=== PATIENT | male | born 1970 | race Caucasian/White ===

== ENCOUNTER 2020-11-13 14:18 | Emergency (ER) | payer BC ==
[~2020-11-13] VITALS: Ht 177.8 cm; Wt 92.5 kg
[2020-11-13 14:38] VITALS: BP_SYST 137
--- NOTE | 2020-11-13 14:38 | NUR ---
PT TO REMAIN IN THE ER LOBBY UNTIL ER BED BECOMES AVAILABLE.
--- NOTE | 2020-11-13 15:10 | NUR ---
Placed in room 6 . Placed on hr generalist, blood pressure machine and pulse oximeter. To gown for exam. Side rails up.
--- NOTE | 2020-11-13 15:11 | NUR ---
Pt came into ER with complaint of intermittent epigastric pain Xtoday at 0800 this morning. Pt reportsit was a dull non radiating intermittent pain 5/10. Pt reports feeling no pain currently and no shortness of breath. Pt is AAOX4 speaking full sentences breathing even and unlabored lungs CTA bilaterally. VSS no distress at this time attached to monitor resting in [place].
--- NOTE | 2020-11-13 15:30 | NUR ---
# 20 gauge angiocath placed to LAC. Use of asceptic technique. Opsite placed over site. Blood return noted. Blood for lab drawn from site. Flushed with 10 cc of normal saline. No evidence of infiltration noted. Patient tolerated well.
--- NOTE | 2020-11-13 15:34 | NUR ---
Blood collected and sent to lab.
--- NOTE | 2020-11-13 16:43 | NUR ---
ER at bedside examining patient.
[2020-11-13] MEDS ORDERED: MAG-AL HYDROX/SIMETH 30 ML UDC PO ONE (17:00)
[2020-11-13] MEDS ORDERED: PANTOPRAZOLE SODIUM 40 MG/VIAL (PROTONIX) IVP ONE (17:00)
--- NOTE | 2020-11-13 17:11 | NUR ---
X-ray at bedside.
[2020-11-13 17:19] LABS: BASOPHILS % (AUTO) 0.2 % (0.0-2.0); EOSINOPHILS % (AUTO) 0.4 % (0.0-4.0); HEMATOCRIT 46.8 % (36-54); HEMOGLOBIN 15.8 g/dL (14.0-18.0); LYMPHOCYTES # (AUTO) 1.8 K/uL (1.0-5.5); LYMPHOCYTES % (AUTO) 16.1 % (20.5-51.5); MEAN CORPUSCULAR HEMOGLOBIN 30 pg (27-31); MEAN CORPUSCULAR HGB CONC 34 % (32-36); MEAN CORPUSCULAR VOLUME 90 fL (79.0-98.0); MONOCYTES # (AUTO) 0.8 K/uL (0.0-1.0); MONOCYTES % (AUTO) 6.9 % (1.7-9.3); NEUTROPHILS # (AUTO) 8.6 K/uL (1.8-7.7); NEUTROPHILS % (AUTO) 76.4 % (40.0-70.0); PLATELET COUNT (AUTO) 372 K/uL (130-430); RED BLOOD CELL COUNT(AUTO) 5.21 MIL/uL (4.2-6.2); RED CELL DISTRIBUTION WIDTH 12.2 % (9.0-15.0); WHITE BLOOD COUNT (AUTO) 11.2 K/uL (4.8-10.8)
[2020-11-13 17:31] LABS: CALCIUM 9.6 mg/dL (8.4-11.0); CREATININE 0.99 mg/dL (0.55-1.30); POTASSIUM 3.8 mmol/L (3.5-5.1)
[2020-11-13 17:37] LABS: ALBUMIN 3.7 g/dL (3.4-4.8); TOTAL BILIRUBIN 0.4 mg/dL (0.0-1.0)
--- NOTE | 2020-11-13 18:39 | NUR ---
Pt resting in [facility] VSS no distress noted at this time.
[2020-11-13 18:51] VITALS: BP_SYST 122
== END 2020-11-13 18:51 ==
LOC: SED 14:18
DX: R07.89 Other chest pain (principal); I10 Essential (primary) hypertension; Z88.0 Allergy status to penicillin
CPT/HCPCS: 36415; 71045; 80053; 83880; 84484; 85025; 93005; 96374; 99285; C9113

== ENCOUNTER 2021-11-02 16:46 | Emergency (ER) | payer BC ==
[~2021-11-02] VITALS: Ht 177.8 cm; Wt 90.7 kg
[2021-11-02 16:53] VITALS: BP_SYST 142
[2021-11-02 17:53] LABS: BASOPHILS # (AUTO) 0.1 K/uL (0.0-0.2); BASOPHILS % (AUTO) 0.6 % (0.0-2.0); EOSINOPHILS # (AUTO) 0.1 K/uL (0.0-0.4); EOSINOPHILS % (AUTO) 0.9 % (0.0-4.0); HEMATOCRIT 45.9 % (36-54); HEMOGLOBIN 15.6 g/dL (14.0-18.0); LYMPHOCYTES # (AUTO) 2.5 K/uL (1.0-5.5); LYMPHOCYTES % (AUTO) 21.4 % (20.5-51.5); MEAN CORPUSCULAR HEMOGLOBIN 30 pg (27-31); MEAN CORPUSCULAR HGB CONC 34 % (32-36); MEAN CORPUSCULAR VOLUME 88 fL (79.0-98.0); MONOCYTES # (AUTO) 0.8 K/uL (0.0-1.0); MONOCYTES % (AUTO) 6.8 % (1.7-9.3); NEUTROPHILS # (AUTO) 8.2 K/uL (1.8-7.7); NEUTROPHILS % (AUTO) 70.3 % (40.0-70.0); PLATELET COUNT (AUTO) 354 K/uL (130-430); RED BLOOD CELL COUNT(AUTO) 5.23 MIL/uL (4.2-6.2); RED CELL DISTRIBUTION WIDTH 12.6 % (9.0-15.0); WHITE BLOOD COUNT (AUTO) 11.6 K/uL (4.8-10.8)
[2021-11-02 17:58] LABS: ANION GAP 8 (5-15); CALCIUM 9.4 mg/dL (8.4-11.0); CHLORIDE 104 mmol/L (98-107); CREATININE 0.94 mg/dL (0.55-1.30); GLUCOSE 102 mg/dL (70-99); POTASSIUM 3.8 mmol/L (3.5-5.1); SODIUM SERUM 139 mmol/L (136-145); UREA NITROGEN, BLOOD 19 mg/dL (8-21)
[2021-11-02 17:59] LABS: GFR AFRICAN AMERICAN 109 mL/min (>90)
[2021-11-02 18:07] LABS: ALANINE AMINOTRANSFERASE 48 U/L (12-78); ALBUMIN 3.5 g/dL (3.4-4.8); ASPARTATE AMINOTRANSFERASE 25 U/L (10-37); TOTAL BILIRUBIN 0.3 mg/dL (0.0-1.0)
--- NOTE | 2021-11-02 18:32 | NUR ---
PT BIBS WITH C/C OF CHEST PAIN THAT STARTED AT 1600 TODAY AFTER PT GOT OFF WORK. PT REPORTS HAVING MOVING AROUND SOME HEAVY EQUIPMENT AT WORK. WHEN GETTING OOB PT EXPERIENCED CHEST PAIN 10/10 THAT RADIATED ACROSS ENTIRE CHEST, NONRADIATING ANYWHERE ELSE. DENIES ANY SOB/N/V. PLACED ON TRAINING CONSULTANT WITH NSR NOTED. BP STABLE, AFEBRILE. DR. GRIFFIN SEEN PT AT BS. PENDING ORDERS. WILL CONT TO MONITOR.
[2021-11-02 21:57] VITALS: BP_SYST 149
--- NOTE | 2021-11-02 21:57 | NUR ---
Patient given written and verbal discharge instructions and verbalizes understanding. ER MD discussed with patient the results and treatment provided. Patient in stable condition. ID arm band removed. No Rx given. Patient educated on pain management and to follow up with PMD. Pain Scale 0/10. Opportunity for questions provided and answered.
== END 2021-11-02 21:57 | disposition home or self-care (01) ==
LOC: SED 16:46
DX: R07.9 Chest pain, unspecified (principal); I10 Essential (primary) hypertension; E78.5 Hyperlipidemia, unspecified; Z88.0 Allergy status to penicillin; Z79.899 Other long term (current) drug therapy
CPT/HCPCS: 36415; 71045; 80053; 84484; 85025; 93005; 99285

== ENCOUNTER 2023-09-17 13:32 | Emergency (ER) | payer BC ==
[~2023-09-17] VITALS: Ht 177.8 cm; Wt 90.7 kg
[2023-09-17 13:35] VITALS: BP_SYST 145; PULSE 126; RESP 18; TEMP 98.3; O2SAT 98
[2023-09-17 14:57] LABS: BASOPHILS % (AUTO) 0.4 % (0.0-2.0); EOSINOPHILS # (AUTO) 0.1 K/uL (0.0-0.4); EOSINOPHILS % (AUTO) 0.9 % (0.0-4.0); HEMATOCRIT 43.9 % (36-54); HEMOGLOBIN 15.2 g/dL (14.0-18.0); LYMPHOCYTES % (AUTO) 20.7 % (20.5-51.5); MEAN CORPUSCULAR HEMOGLOBIN 31 pg (27-31); MEAN CORPUSCULAR HGB CONC 35 % (32-36); MEAN CORPUSCULAR VOLUME 88 fL (79.0-98.0); MONOCYTES # (AUTO) 0.8 K/uL (0.0-1.0); MONOCYTES % (AUTO) 8.8 % (1.7-9.3); NEUTROPHILS # (AUTO) 6.6 K/uL (1.8-7.7); NEUTROPHILS % (AUTO) 69.2 % (40.0-70.0); PLATELET COUNT (AUTO) 341 K/uL (130-430); RED BLOOD CELL COUNT(AUTO) 4.98 MIL/uL (4.2-6.2); RED CELL DISTRIBUTION WIDTH 12.4 % (9.0-15.0); WHITE BLOOD COUNT (AUTO) 9.6 K/uL (4.8-10.8)
[2023-09-17 15:21] LABS: ANION GAP 7 (5-15); CALCIUM 9.1 mg/dL (8.4-11.0); CARBON DIOXIDE 27 mmol/L (23-29); CHLORIDE 104 mmol/L (98-107); CREATININE 1.07 mg/dL (0.55-1.30); GFR AFRICAN AMERICAN 93 mL/min (>90); GLUCOSE 97 mg/dL (74-106); POTASSIUM 4.1 mmol/L (3.5-5.1); SODIUM SERUM 138 mmol/L (136-145); THYROID STIMULATING HORMONE 1.33 uIu/mL (0.36-3.74); UREA NITROGEN, BLOOD 20 mg/dL (8-21)
[2023-09-17 15:22] LABS: GFR NON AFRICAN-AMERICAN 77 mL/min (>90)
[2023-09-17 17:19] VITALS: BP_SYST 136; PULSE 94; RESP 17; TEMP 98.3; O2SAT 98
== END 2023-09-17 17:20 | disposition home or self-care (01) ==
LOC: SED 13:32
DX: R00.2 Palpitations (principal); F41.9 Anxiety disorder, unspecified; R00.0 Tachycardia, unspecified; I10 Essential (primary) hypertension; E78.5 Hyperlipidemia, unspecified; Z88.0 Allergy status to penicillin
CPT/HCPCS: 36415; 71045; 80048; 83880; 84443; 84484; 85025; 93005; 99285